=== PATIENT | male | born 1960 | race Caucasian/White ===

== ENCOUNTER 2016-12-07 21:19 | Emergency (ER) | payer SELFPAY ==
[2016-12-07] MEDS ORDERED: RX-GENTAMICIN 0.3% OP OINT 3.5 GM TUBE OP STA (21:48)
[2016-12-07] MEDS ORDERED: METO-351 PO (21:54)
[2016-12-07] MEDS ORDERED: TETRACAINE 0.5% OPHTH SOLN 4 ML BTL (SINGLE DOSE ONLY) OP ONE (22:00)
[2016-12-07] MEDS ORDERED: FLUORESCEIN (FLUOR-I-STRIPS) 1 MG STRP OU ONE (22:00)
[2016-12-07] MEDS ORDERED: BSS 15 ML IR ONE (22:00)
== END 2016-12-07 22:00 | disposition home or self-care (01) ==
DX: S05.01XA Injury of conjunctiva and corneal abrasion without foreign body, right eye, initial encounter (principal); I10 Essential (primary) hypertension; F17.200 Nicotine dependence, unspecified, uncomplicated; W20.8XXA Other cause of strike by thrown, projected or falling object, initial encounter

== ENCOUNTER 2018-03-30 08:20 | Emergency (ER) | payer SELFPAY ==
[~2018-03-30] VITALS: Ht 170.2 cm; Wt 63.5 kg
[~2018-03-30 08:20] MED LIST: METO-351 PO
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
[2018-03-30 08:50] LABS: BASOPHILS % (AUTO) 0 % (0-10); EOSINOPHILS # (AUTO) 0.4 10^3/uL (0.0-0.3); EOSINOPHILS % (AUTO) 4 % (0-10); HEMATOCRIT 43 % (40-54); HEMOGLOBIN 14.9 G/DL (13.3-17.7); LYMPHOCYTES # (AUTO) 2.2 X 10^3 (1.0-4.0); LYMPHOCYTES % (AUTO) 25 % (12-44); MEAN CORPUSCULAR HEMOGLOBIN 31 PG (25-34); MEAN CORPUSCULAR HGB CONC 35 G/DL (32-36); MEAN CORPUSCULAR VOLUME 91 FL (80-99); MEAN PLATELET VOLUME 10.5 FL (7.4-10.4); MONOCYTES # (AUTO) 0.7 X 10^3 (0.0-1.0); MONOCYTES % (AUTO) 8 % (0-12); NEUTROPHILS # (AUTO) 5.8 X 10^3 (1.8-7.8); NEUTROPHILS % (AUTO) 64 % (42-75); PLATELET COUNT 239 10^3/uL (130-400); RED BLOOD COUNT 4.74 10^6/uL (4.35-5.85); RED CELL DISTRIBUTION WIDTH 13.9 % (10.0-14.5); WHITE BLOOD COUNT 9.1 10^3/uL (4.3-11.0)
[2018-03-30 09:11] LABS: ALANINE AMINOTRANSFERASE 19 U/L (0-55); ALBUMIN 3.8 GM/DL (3.2-4.5); ALKALINE PHOSPHATASE 55 U/L (40-136); BILIRUBIN,TOTAL 0.9 MG/DL (0.1-1.0); BUN/CREATININE RATIO 21; CALCIUM 8.7 MG/DL (8.5-10.1); CARBON DIOXIDE 23 MMOL/L (21-32); CHLORIDE 107 MMOL/L (98-107); CREATININE SERUM 0.87 MG/DL (0.60-1.30); GFR ESTIMATED > 60; GLUCOSE 103 MG/DL (70-105); POTASSIUM 4.2 MMOL/L (3.6-5.0); SODIUM 141 MMOL/L (135-145); TOTAL PROTEIN 7.2 GM/DL (6.4-8.2)
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
[2018-03-30] MEDS ORDERED: fentaNYL INJECTION 100 MCG/2 ML AMP IVP ONE (09:45)
[2018-03-30] MEDS ORDERED: LIDOCAINE 1% INJ 20 ML 20 ML VIAL ONE (09:48)
[2018-03-30 16:55] VITALS: BP 121/84
== END 2018-03-30 11:21 | disposition home or self-care (01) ==
LOC: EDUNIT# 08:20 → ER 08:22
DX: S01.81XA Laceration without foreign body of other part of head, initial encounter (principal); R40.2142 Coma scale, eyes open, spontaneous, at arrival to emergency department; R40.2252 Coma scale, best verbal response, oriented, at arrival to emergency department; R40.2362 Coma scale, best motor response, obeys commands, at arrival to emergency department; V29.49XA Motorcycle driver injured in collision with other motor vehicles in traffic accident, initial encounter
CPT/HCPCS: 12014; 36415; 70450; 71045; 72125; 73030; 80053; 82962; 85025

== ENCOUNTER 2020-08-18 13:21 | Emergency (ER) | payer SELFPAY ==
[~2020-08-18] VITALS: Ht 167.6 cm; Wt 61.3 kg
[2020-08-18] MEDS ORDERED: IBUPROFEN 800 MG (MOTRIN) TAB PO ONE (14:00)
[2020-08-18] MEDS ORDERED: oxyCODONE/APAP 5/325MG (PERCOCET 5) TABLET PO ONE (14:00)
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
--- NOTE | 2020-08-18 14:43 | Diagnostic Imaging Report ---
INDICATION: Left hip pain. TECHNIQUE: An AP pelvis and AP and oblique views of the left hip were obtained. FINDINGS: No fracture or acute bony abnormality is seen. The hip joint spaces appear symmetric and unremarkable. There is no lytic or blastic lesion IMPRESSION: Negative left hip. Dictated by: Dictated on workstation # [id number]
--- NOTE | 2020-08-18 14:48 | Diagnostic Imaging Report ---
INDICATION: Pain in the left sacroiliac joint. COMPARISON: Pelvis radiograph performed concurrently. TECHNIQUE: Three views of the lumbosacral spine were obtained. FINDINGS: Normal alignment of the lumbar spine. No spondylolisthesis. The vertebral bodies are normal in stature without fracture or ankylosis. No ankylosis of the posterior elements. SI joints are symmetric without ankylosis or marginal erosions. Intervertebral disc space heights are preserved. There are a few osteophytes that have developed from the endplates in the upper lumbar spine. IMPRESSION: 1. No structural changes of spondyloarthropathy in the lumbosacral spine. 2. No compression fracture. Dictated by: Dictated on workstation # [id number]
[2020-08-18] MEDS ORDERED: OXYC1TAB87 PO (15:12)
[2020-08-18] MEDS ORDERED: AMLO5TAB4 PO (15:12)
[2020-08-18] MEDS ORDERED: PRD20T PO (15:12)
[2020-08-18 15:39] VITALS: BP 188/108
== END 2020-08-18 15:35 | disposition home or self-care (01) ==
LOC: EDUNIT# 13:21 → ER 13:23
DX: M46.1 Sacroiliitis, not elsewhere classified (principal); I10 Essential (primary) hypertension; F17.210 Nicotine dependence, cigarettes, uncomplicated
CPT/HCPCS: 72100

== ENCOUNTER → 2022-06-08 | Outpatient (CLI) | payer OTHER ==
[~2022-06-08] MED LIST changes: +AMLO5TAB4 PO; +OXYC1TAB87 PO; +PRD20T PO
== END ==
LOC: RT 08:58
PROVIDERS: ATTEND Family Medicine
DX: Z02.71 Encounter for disability determination (principal)
CPT/HCPCS: 94060; 94729

== ENCOUNTER → 2022-08-10 | Outpatient (CLI) | payer OTHER ==
--- NOTE | 2022-08-10 15:00 | Diagnostic Imaging Report ---
INDICATION: Pain, DDU COMPARISON: 03/30/2018 TECHNIQUE: 2 radiographs of the left shoulder dated 08/10/2022. FINDINGS: The acromion is inferiorly positioned in relationship to the distal clavicle by at least one shaft width. This is associated with mild hypertrophic changes about the acromioclavicular joint. A small well-corticated ossific density is noted inferior to the distal clavicle. Mild calcifications are also seen extending inferiorly mid to distal clavicle. No acute fracture or dislocation. No destructive osseous process. Small metallic densities are identified overlying the chest, not significantly changed since March 2018. IMPRESSION: Separation of the left acromioclavicular joint, which appears new since 2018, though exact chronicity is uncertain. Given degree of separation, this likely relates to a type III AC joint injury. Well-corticated ossific density inferior to the distal clavicle, felt related to a chronic fracture fragment versus dystrophic soft tissue calcification. No acute fracture. Mild degenerative changes. Dictated by: Dictated on workstation # [id number]
--- NOTE | 2022-08-10 16:50 | Diagnostic Imaging Report ---
INDICATION: Pain, DDU. COMPARISON: 08/18/2020. TECHNIQUE: Three radiographs of the lumbar spine dated August 10, 2022. FINDINGS: Transitional lumbosacral vertebral body. Alignment appears similar to the prior examination without significant anterolisthesis or retrolisthesis. Chronic anterior wedging within the lower thoracic spine is again identified. Mild scattered endplate degenerative changes without acute vertebral body compression deformity. No severe disc space height loss. Multilevel small anterior osteophyte formation, greatest within the lower thoracic spine. Multilevel lateral osteophytes, greatest within the upper lumbar spine. No acute fracture or dislocation. The sacroiliac joints are intact. No suspicious radiopaque foreign body. Background vascular calcifications. IMPRESSION: No acute osseous abnormality with mild degenerative changes present. Chronic anterior wedging within the lower thoracic spine, unchanged from the prior exam. Dictated by: Dictated on workstation # [id number]
== END ==
LOC: RAD 10:05
PROVIDERS: ATTEND Family Medicine
DX: S43.122A Dislocation of left acromioclavicular joint, 100%-200% displacement, initial encounter (principal); M54.50 Low back pain, unspecified
CPT/HCPCS: 72100; 73030